=== PATIENT | female | born 1945 | race Hispanic/Latino ===

== ENCOUNTER 2017-02-14 10:19 | Day surgery (SDC) | payer MEDICARE ==
[2017-02-03 07:56] VITALS: BMI 20.9
[2017-02-14] MEDS ORDERED: Iohexol 240 (50 ml) ONE (13:24)
[2017-02-14] MEDS ORDERED: cefTRIAXone (Rocephin) 1 gm Inj ONE (13:24)
[2017-02-14] MEDS ORDERED: Propofol 10 mg/ml Inj (20 ML) ONE (13:33)
[2017-02-14] MEDS ORDERED: HYDROmorphone 0.5 mg/0.5 ml ISec IVP PRN (15:15)
[2017-02-14] MEDS ORDERED: Lactated Ringer's 1,000 ML IV SCH (15:15)
--- NOTE | 2017-02-14 15:22 | RAD ---
PROCEDURE: Retrograde pyelogram HISTORY: RT CYSOGRAM, RT NEPHROURETERAL STENT PLACEMENT COMPARISON: TECHNIQUE: Fluoroscopy was provided in the operating room. 2 minutes and 50 seconds of fluoro time. 16 images were submitted FINDINGS: The study shows placement of a wire and stent in the right renal collecting system. There is some extravasation of contrast around the proximal ureter. There is severe hydronephrosis. IMPRESSION: As above
[2017-02-14] MEDS ORDERED: Metoprolol 1 mg/ml Inj IVP ONE ×3 (16:58→17:05)
[2017-02-14 17:59] VITALS: PULSE 81; RESP 18; O2SAT 96
[2017-02-14 18:57] VITALS: BP 144/69; TEMP 97.4
== END 2017-02-14 18:30 | disposition home or self-care (01) ==
LOC: SDS 10:19
PROVIDERS: ATTEND Urology
DX: N13.1 Hydronephrosis with ureteral stricture, not elsewhere classified (principal); N13.2 Hydronephrosis with renal and ureteral calculous obstruction
CPT/HCPCS: 52332; 52344; 74420; C1726; C1758 ×2; C1769 ×2; C2625; J0360; J0696; J1170; J2704; J3010; J7120 ×2; Q9966

== ENCOUNTER 2017-03-21 08:39 | Day surgery (SDC) | payer MEDICARE ==
[2017-02-03 07:56] VITALS: BMI 20.9
[2017-03-21] MEDS ORDERED: cefTRIAXone (Rocephin) 1 gm Inj ONE (12:45)
[2017-03-21] MEDS ORDERED: Iohexol 240 (50 ml) ONE (12:45)
[2017-03-21] MEDS ORDERED: Propofol 10 mg/ml Inj (20 ML) ONE (12:50)
[2017-03-21] MEDS ORDERED: Midazolam 2 MG/2 ML VIAL ONE (12:51)
[2017-03-21] MEDS ORDERED: HYDROmorphone 0.5 mg/0.5 ml ISec IVP PRN (14:00)
[2017-03-21] MEDS ORDERED: Lactated Ringer's 1,000 ML IV SCH (14:00)
--- NOTE | 2017-03-21 14:57 | RAD ---
PROCEDURE: Retrograde pyelogram HISTORY: RT Nephroureteral stent exchange, RT ureter dilation COMPARISON: TECHNIQUE: Fluoroscopy was provided in the operating room. 1 minutes and 51 seconds of fluoroscopy time were used. Fourteen images were submitted FINDINGS: The study shows placement of a right ureteral stent. The right renal collecting system is dilated IMPRESSION: As above
[2017-03-21 15:08] VITALS: PULSE 71; RESP 20; TEMP 97.7; O2SAT 93
[2017-03-21 15:57] VITALS: BP 180/79
--- NOTE | 2017-03-21 23:39 | OP ---
PROCEDURE DATE: 03/21/2017 PREOPERATIVE DIAGNOSES: Right hydronephrosis, right ureteral calculus, right ureteral stricture and possible right ureteropelvic junction obstruction. PROCEDURE: Cystoscopy, right retrograde pyelogram, dilation of right ureteral stricture, right ureteroscopy, laser lithotripsy of renal pelvic stone, biopsy of renal pelvic mass and removal and reinsertion of right ureteral stent. ATTENDING SURGEON: Dr. Errol Patrick. TYPE OF ANESTHESIA: General. SPECIMEN: Right renal pelvic biopsy and barbotage cytologies from right renal pelvis. DRAINS: A 6 x 26 right ureteral stent. COMPLICATIONS: There were none. OPERATIVE FINDINGS: After informed consent was obtained, the patient was taken to the operating room and placed in the operating table and anesthesia was administered. The patient was then placed in the dorsal lithotomy position and prepped and draped in the usual sterile fashion. A 21-Luxembourger cystoscope was then passed into the patient's bladder and a full survey inspection was performed. There was stent noted exiting from the right ureteral orifice. There was moderate bullous inflammation noted around the stent. The left ureteral orifice appeared within normal limits. There were no other bladder tumors or stones noted. At this point, on fluoroscopy, a calcification was noted in what appeared to be the area of the up right ureter. A grasping forceps was passed, the stent was then grasped and withdrawn through the urethral meatus. On fluoroscopic guide, the stent was then removed down the ureter. The calcification did appear to be in the ureter, but it remained in situ in the position it was in. The cystoscope was re-passed and a guidewire was passed into the orifice and advanced into the mid ureter. The stent was then fully removed and withdrawn from the operative field. The guidewire was then advanced proximally under fluoroscopic guidance until it coiled in the upper collecting system. At this point, an attempt was made to perform a ureteroscopy with a 7.5-Luxembourger semi-rigid ureteroscope as the flexible scope was not readily available. The scope was able to be passed easily into the ureteral meatus and advanced proximally. In the distal ureter, about 2 cm above the orifice, there was noted to be an ureteral stricture. Multiple attempts were made to bypass the stricture, however, it was unsuccessful with the scope. At this point, the scope was removed. An ureteral access sheath was then obtained. The obturator was removed from the scope prior to passing the ureteral access sheath. A second wire, an 0.35 ZIPwire was passed and advanced up the ureter under direct fluoroscopic guidance. With both wires in place, the obturator was passed over the glide wire into the orifice. The sheath was able to be passed through the stricture area. It was left in place for approximately 3 minutes and the obturator was then removed. The obturator was then passed into the sheath and again it was passed over the glide wire. It was advanced under fluoroscopic guidance through the strictured area and up into the mid and upper ureter. At this point, the flexible scope had become available. The obturator was removed and the flexible ureteroscope was then passed over the glide wire into the access sheath and up into the ureter. The ureteroscope was then able to be advanced into the renal pelvis. At this point, a jagged, yellowish calculus was identified. There was a large amount of inflammation in the UPJ with debris and what appeared to be some free floating soft tissue. At this point, the wire was removed from the scope. A holmium laser fiber was passed, and under direct vision, the stone was able to be easily fragmented into small pieces. The scope was then able to be advanced more proximally into the kidney and the collecting system was examined. There was a markedly dilated renal pelvis. There were no overt masses noted within the kidney. As the scope was pulled back into the area of the UPJ, there appeared to be somewhat of a narrowing and mass like effect, possibly inflammation from the prior stent along with a ureteropelvic junction obstruction. Given the history of thickening in this area, a biopsy forceps was passed through the flexible scope. Few biopsies of the inflamed area in the UPJ were able to be taken and sent to pathology as specimen. After the biopsies were performed, a barbotage cytology was also performed of the renal pelvis by reinserting the obturator and irrigating through the obturator of the access sheath. That fluid was also sent to pathology as specimen. At this point, the procedure was completed. The scope was re-passed, the stone was well fragmented. There were only pieces which were less than 1 mm in size. The scope was then withdrawn in its entirety. The access sheath was then removed. The cystoscope was then re-passed while backloading the guidewire. After the cystoscope was re-passed, a 6 x 26 stent was obtained, it was passed over the guidewire through the cystoscope and into the right ureter. The stent was advanced proximally under direct fluoroscopic guidance until it was in at the appropriate position. When the stent was in place, guide wire was removed. A coil was seen in the renal pelvis on fluoroscopy, a coil was seen in the bladder on cystoscopy. At this point, the procedure was completed, the bladder was drained, the cystoscope was removed. The patient tolerated the procedure well. She was taken to the recovery room awake and in stable condition. Errol Patrick MD
== END 2017-03-21 16:10 | disposition home or self-care (01) ==
LOC: SDS 08:39
PROVIDERS: ATTEND Urology
DX: N13.2 Hydronephrosis with renal and ureteral calculous obstruction (principal); N13.1 Hydronephrosis with ureteral stricture, not elsewhere classified; F17.200 Nicotine dependence, unspecified, uncomplicated
CPT/HCPCS: 52344; 52354; 52356; 74420; 88108; 88305; J0696; J1170; J2250; J2405; J2704; J3010; J7120; Q9966

== ENCOUNTER 2017-06-20 08:11 | Day surgery (SDC) | payer MEDICARE ==
[2017-06-10 09:00] VITALS: BMI 20.5
[2017-06-20 08:53] VITALS: RESP 18
[2017-06-20] MEDS ORDERED: Lidocaine 2% Jelly (Uro-Jet) ONE (09:29)
[2017-06-20] MEDS ORDERED: cefTRIAXone (Rocephin) 1 gm Inj ONE (09:29)
[2017-06-20] MEDS ORDERED: Propofol 10 mg/ml Inj (20 ML) ONE (10:36)
[2017-06-20] MEDS ORDERED: Midazolam 2 MG/2 ML VIAL ONE (10:36)
[2017-06-20] MEDS ORDERED: Iohexol 240 (50 ml) ONE (10:56)
[2017-06-20] MEDS ORDERED: ePHEDrine 50 mg/ml Inj ONE (10:57)
[2017-06-20] MEDS: Iohexol 240 (50 ml) ONE ×2 (11:34→11:36)
[2017-06-20] MEDS ORDERED: Labetalol 5 mg/ml Inj 20ML IVP PRN (11:43)
[2017-06-20] MEDS ORDERED: Lactated Ringer's 1,000 ML IV SCH (11:45)
[2017-06-20 12:49] VITALS: BP 176/84; PULSE 84; TEMP 98; O2SAT 98
--- NOTE | 2017-06-20 13:59 | RAD ---
PROCEDURE: Retrograde pyelogram HISTORY: RT Retrograde Pyelogram COMPARISON: TECHNIQUE: Fluoroscopy was provided in the operating room. 63 seconds of fluoro time were used. Sixteen images were submitted. . FINDINGS: There is an obstructing mass or filling defect in the right mid ureter. A wire and stent were passed beyond the point of obstruction. There is severe hydronephrosis. The procedure was performed by Dr. Patrick IMPRESSION: As above
--- NOTE | 2017-06-21 08:01 | OP ---
DATE OF PROCEDURE: 06/20/2017 PREOPERATIVE DIAGNOSES: Hematuria, right hydronephrosis. POSTOPERATIVE DIAGNOSES: Hematuria, right hydronephrosis, plus right ureteral tumor. PROCEDURES PERFORMED: Cystoscopy, right retrograde pyelogram, right ureteroscopy, biopsy and fulguration of right ureteral tumor. ATTENDING SURGEON: Dr. Errol Patrick. ANESTHESIA: General. SPECIMENS: Biopsies of tumors sent to Pathology. DRAINS: There were none. COMPLICATIONS: There were none. DESCRIPTION OF PROCEDURE: After informed consent was obtained, the patient was taken to the operating room, placed supine on the operating table, and anesthesia was administered. The patient was then placed in the dorsal lithotomy position and prepped and draped in usual sterile fashion. The patient received intravenous antibiotics prior to start of the procedure. A 21-Zimbabwean cystoscope was passed into the patient's bladder and a full survey inspection was performed. There were no stones, tumors, or foreign bodies of the bladder noted. Both renal orifices were visualized and appeared within normal limits. At this point, a 5-Zimbabwean Pollack catheter was introduced through the cystoscope and guided into the right ureteral orifice. When inside the orifice, a right retrograde pyelogram was performed by instilling contrast into the right ureter during real-time fluoroscopy. In the mid ureter just at the pelvic brim, there was a filling defect noted in the ureter. Scant amounts of contrast were able to be passed beyond the filling defect. At this point, a sensor wire was obtained. The sensor wire was then passed into the ureter through the Pollack catheter and advanced proximally under fluoroscopic guidance. The wire was able to be passed beyond the filling defect and up into the kidney. The Pollack catheter was then able to be advanced over the wire into the kidney and at this point, the wire was removed and further contrast was instilled into the system. There was marked hydronephrosis with a markedly dilated right renal pelvis noted. At this point, the guidewire was re-passed. There were no obvious filling defects noted in the pelvis or upper collecting system. Guidewire was re-passed until it coiled in the upper collecting system. The Pollack catheter was then removed. The bladder was then drained and an 8-Zimbabwean long ureteroscope was obtained. The ureteroscope was passed into the bladder and was guided into the right ureter by following the wire. Under direct vision, the ureteroscope was passed. In the area of the mid ureter where the filling defect was noted, a large papillary tumor was noted arising from the right wall in posterior aspect of the ureter. At this point, biopsy forceps was obtained. The cold cup biopsy forceps was passed multiple times through the ureteroscope and multiple small pieces of the tumor were able to be taken. The pieces were all sent together as specimen. After adequate biopsies were taken, a Bugbee electrode was passed through the ureteroscope. The tumor was able to be fulgurated. There was no active bleeding noted afterwards. The ureteroscope was able to be advanced through the area of tumor; however, it did appear to extend superiorly and there was some difficulty getting completely above the tumor, and further attempts were stopped. The ureteroscope was withdrawn under direct vision. There was no active bleeding from the tumor biopsy sites noted. The ureteroscope was then withdrawn in its entirety. The cystoscope was then re-passed, the bladder was drained, and the guidewire was removed. The patient tolerated the procedure well. She was returned to the supine position and taken to the recovery room awake in stable condition. Errol Patrick MD
== END 2017-06-20 14:10 | disposition home or self-care (01) ==
LOC: SDS 08:11
PROVIDERS: ATTEND Urology
DX: C66.1 Malignant neoplasm of right ureter (principal); N13.30 Unspecified hydronephrosis; R31.9 Hematuria, unspecified
CPT/HCPCS: 52354; 74420; 88305; C1769; J0696; J1885; J2250; J2704; J3010; J7120 ×2; Q9966